=== PATIENT | female | born 1990 | race Caucasian/White ===

== ENCOUNTER → 2024-01-31 | Outpatient (CLI) | payer BC, OTHER ==
--- NOTE | 2024-01-31 18:31 | US ---
EXAMINATION TYPE: US pelvic complete DATE OF EXAM: 01/31/2024 COMPARISON: NONE CLINICAL INDICATION: Female, 33 years old with history of N92.6 IRREG MENSTRUATION; TECHNIQUE: . Transabdominal sonographic images of the pelvis were acquired. Transvaginal sonographi c images were medically necessary to better assess the following anatomy: Ovaries and endometrium Date of LMP: 12/24/2023; Today EXAM MEASUREMENTS: Uterus: 6.5 x 3.1 x 3.8 cm Endometrial Stripe: 1.0m Right Ovary: 2.8 x 2.5 x 2.4 cm Left Ovary: 3.3 x 1.6 x 3.1 cm 1. Uterus: Anteverted wnl 2. Endometrium: wnl 3. Right Ovary: Rounded; ? String of pearls consistent with PCOS 4. Left Ovary: ? String of pearls consistent with PCOS 5. Bilateral Adnexa: wnl 6. Posterior cul-de-sac: wnl IMPRESSION: 1. Multiple peripheral follicles seen within the ovaries. Findings can be seen in polycystic ovarian morphology. 2. No evidence of acute pelvic process.
--- NOTE | 2024-01-31 18:32 | US ---
EXAMINATION TYPE: US thyroid st tissue head/neck DATE OF EXAM: 01/31/2024 COMPARISON: NONE CLINICAL INDICATION: Female, 33 years old with history of R59.0 CERVICAL LYMPHADENOPATHY; GLAND SIZE: Right Lobe: 5.4 x 1.4 x 2.1 cm Overall Parenchyma: homogeneous Left Lobe: 4.3 x 1.1 x 1.7 cm Overall Parenchyma: homogeneous Isthmus Thickness: 0.3 cm NODULES RIGHT: # of nodules measured on right: 2 1. 1.2 X 0.6 x 1.0 cm, upper lateral, Prior size: No prior TIRADS Score: 0 TIRADS Category 1: Benign Composition: Cystic or almost completely cystic (0 points). Recommendation: No FNA 2. 1.0 X 0.5 x 0.9 cm, lower medial, Prior size: No prior TIRADS Score: 0 TIRADS Category 1: Benign Composition: Cystic or almost completely cystic (0 points). Recommendation: No FNA LEFT: # of nodules measured on left: 0 Few subcentimeter cystic areas with an echogenic foci noted ISTHMUS: # of nodules measured in the isthmus: 0 Bilateral neck scanned, no evidence of lymphadenopathy. IMPRESSION: Benign-appearing thyroid nodules.
== END | disposition home or self-care (01) ==
LOC: RADUSWWP 15:38
PROVIDERS: ATTEND Family Medicine
DX: E04.2 Nontoxic multinodular goiter (principal); N83.8 Other noninflammatory disorders of ovary, fallopian tube and broad ligament; N92.6 Irregular menstruation, unspecified; R59.0 Localized enlarged lymph nodes
CPT/HCPCS: 76536; 76856

== ENCOUNTER → 2024-10-23 | Outpatient (CLI) | payer OTHER ==
--- NOTE | 2024-10-23 08:46 | FL ---
EXAMINATION TYPE: FL barium swallow DATE OF EXAM: 10/23/2024 8:34 AM COMPARISON: Correlation thyroid ultrasound 01/31/2024 CLINICAL INDICATION: Female, 33 years old with history of R13.10 Dysphagia; E04.1 right thyroid nodul e, , Total Fluoroscopy Time: 48 seconds Total DAP: [id number] 31 images obtained. FINDINGS: The swallowing mechanism is normal and hypopharyngeal anatomy is preserved. The cervical and thoracic portions have a normal course and caliber and normal motility. The mucosa is normal and no persistent filling defect is encountered. No hiatal hernia is present. No gastroesophageal reflux is identified. IMPRESSION: Unremarkable cervical and thoracic esophagram. [facility], , 10/23/2024 8:44 AM
--- NOTE | 2024-10-23 23:44 | US ---
EXAMINATION TYPE: US thyroid st tissue head/neck DATE OF EXAM: 10/23/2024 COMPARISON: US(01/31/2024) CLINICAL INDICATION: Female, 33 years old with history of E041 RIGHT THYROID NODULE; TECHNIQUE: Grayscale and color Doppler imaging of the thyroid gland. FINDINGS: GLAND SIZE: Right Lobe: 5.0x1.4x2.2 cm Overall Parenchyma: heterogeneous Left Lobe: 4.1x1.0x1.7 cm Overall Parenchyma: heterogeneous Isthmus Thickness: 0.3 cm NODULES RIGHT: # of nodules measured on right: 2 1. 1.2 X 0.5 x 0.9 cm, mid mid, cystic or almost completely cystic, anechoic nodule, which is wider than tall, with smooth margins, with echogenic foci. Prior size: 1.2 x 0.6 x 1.0 cm 2. 0.8 X 0.4 x 0.7 cm, mid mid, cystic or almost completely cystic, anechoic nodule, which is wider than tall, with smooth margins, without echogenic foci. Prior size: 1.0 x 0.5 x 0.9 cm LEFT: # of nodules measured on left: 1 1. 0.6 X 0.5 x 0.6 cm, upper mid, cystic or almost completely cystic, anechoic nodule, which is wid er than tall, with smooth margins, with echogenic foci. ISTHMUS: # of nodules measured in the isthmus: 0 Bilateral neck scanned, no evidence of lymphadenopathy. IMPRESSION: 1. No suspicious thyroid nodules 2017 ACR TI-RADS LEVEL: TR-RADS 1 - BENIGN: No FNA *Highest TI-RADS level nodule reported [email or web address] [facility], , 10/23/2024 11:42 PM
== END | disposition home or self-care (01) ==
LOC: RADFLMAIN 07:52
PROVIDERS: ATTEND Student in an Organized Health Care Education/Training Program
DX: E04.1 Nontoxic single thyroid nodule (principal); R13.10 Dysphagia, unspecified
CPT/HCPCS: 74220; 76536